=== PATIENT | male | born 1980 | race African-American/Black ===

== ENCOUNTER 2016-12-08 13:55 | Outpatient (CLI) | payer BC ==
--- NOTE | 2016-12-08 17:59 | MRI ---
MRI LUMBAR SPINE NONCONTRAST: DATE: 12/08/16 COMPARISON: None. HISTORY: 36-year-old male with left lumbar radiculopathy for 3 weeks. FINDINGS: For the purposes of this report, it will be assumed that there are 5 lumbar-type vertebrae. The lyubov tebral body heights are maintained. There is diffusely T1 hypointense bone marrow signal. This is nonspecific, but the most common etiol ogy for this age group is red marrow conversion. Alignment is normal. No pathology of perivertebral spaces identified. Hypertrophy of the bilateral psoas muscles, presumably due to exercise. The findings by individual levels are as follows: T12-L1: Normal. L1-2: Normal. Conus medullaris terminates at this level. L2-3: Normal. L3-4: Minimal disc bulge. Disc signal and disc height maintained. Mild bilateral neural foraminal stenosis . No central stenosis. Mild degenerative facet changes bilaterally. L4-5: Mild to moderate disc space narrowing. Diffuse disc desiccation. Prominent diffuse disc bulge. Mild bilateral degenerative facet changes, slightly greater than at the L3-4 level. Bilateral moderate ne ural foraminal stenosis. Mild central stenosis. Small central disc protrusion with annular fissure s uperimposed on the disc bulge. Mild to moderate thecal sac stenosis due to this plus prominent poste rior epidural fat pad. L5-S1: Moderate disc space narrowing. Diffuse disc desiccation. Diffuse prominent disc bulge. There is a le ft paracentral/lateral focal disc extrusion with slight inferior migration of disc material, which i mpinges on the left S1 nerve root. The left S1 nerve root appears to be swollen. There is also a zelda tral and right paracentral component of disc herniation which abuts and mildly displaces the contral ateral right S1 nerve root. These cause a mild degree of central spinal canal stenosis. No high grad e degenerative facet changes. Mild bilateral neural foraminal stenosis. IMPRESSION: 1. Prominent, moderate sized left paracentral-lateral disc extrusion at L5-S1, frankly impinging on the left S1 nerve root. 2. Smaller central and right paracentral disc herniation at L5-S1 mildly impinging on the contralat eral right S1 nerve root. 3. Degenerative disc disease at L4-5 and L5-S1. EVELYN Rodriguez POS: KAREN
== END 2016-12-08 13:56 | disposition home or self-care (01) ==
LOC: TBSIIMAG 13:55
PROVIDERS: ATTEND Neurological Surgery
DX: M51.17 Intervertebral disc disorders with radiculopathy, lumbosacral region (principal)
CPT/HCPCS: 72148

== ENCOUNTER 2016-12-19 08:28 | Day surgery (SDC) | payer BC ==
[2016-12-16 11:08] VITALS: BMI 33.2
[2016-12-19 10:05] LABS: Hematocrit 49.8 % (42.0-52.0); Mean Platelet Volume 6.2 fL (7.4-10.4); Red Blood Cell (RBC) Count 5.39 mill/uL (4.70-6.10); White Blood Cell (WBC) Count 8.1 thou/uL (4.8-10.8)
[2016-12-19 10:22] LABS: Anion Gap 11 mmol/L (10-20); BUN (Urea Nitrogen) 12 mg/dL (8.9-20.6); Calc. Creatinine Clearance 167 mL/min (70-130); Calcium 9.9 mg/dL (7.8-10.44); Carbon Dioxide 25 mmol/L (22-29); Chloride 109 mmol/L (98-107); Estimated GFR-MDRD Greater than 90
[2016-12-19] MEDS ORDERED: CEFAZOLIN/Water 2 GM/20 ML SYRINGE ONE (10:22)
[2016-12-19] MEDS ORDERED: Midazolam HCl 2 mg/2 ml Vial ONE ×2 (10:22→11:50)
[2016-12-19] MEDS ORDERED: Fentanyl 100 MCG/2 ML VIAL ONE ×4 (11:50→14:21)
[2016-12-19] MEDS ORDERED: Lidocaine 2% MPF 10 ML AMP (For Epidural Use) ONE (12:21)
[2016-12-19] MEDS ORDERED: Propofol 200 MG/20 ML VIAL ONE (12:21)
[2016-12-19] MEDS ORDERED: PHENYLEPHRINE-NS 100 MCG/ML 10 ML SYRINGE ONE (12:21)
[2016-12-19] MEDS ORDERED: Glycopyrrolate 0.2 MG/ML 5 ML SYRINGE ONE (12:21)
[2016-12-19] MEDS ORDERED: Dexamethasone 20 MG/5 ML VIAL ONE (12:21)
[2016-12-19] MEDS ORDERED: Ondansetron HCl/PF 4 MG/2 ML Vial ONE (12:21)
--- NOTE | 2016-12-19 13:21 | OP ---
DATE OF OPERATION: 12/19/2016 SURGEON: Lincoln Finch M.D. TRACK SERVICE WORKER: Vandana Elias PA-C PROCEDURE: Left L5-S1 microdiskectomy. PROCEDURE IN DETAIL: The patient was brought into the operating room, intubated. He was rolled in the prone position on gel-filled chest rolls. Incision made exposing L5 and S1 on the left and our level was confirmed by x-ray. We performed left L5-S1 hemilaminectomy, removed the yellow ligament and identified beneath the left S1 nerve root, a large herniated disk removed in multiple pieces. A complete decompression of left S1 was achieved. The wound was then extensively irrigated, katrin te hemostasis was secured. Vancomycin powder was applied and the wound was closed in anatomic layer s.
[2016-12-19] MEDS ORDERED: Ketorolac Tromethamine 30 MG/ML VIAL ONE (14:20)
[2016-12-19] MEDS ORDERED: HYDROcodone/Acetaminophen 10/325 mg Tablet ONE (15:39)
== END 2016-12-19 16:20 | disposition home or self-care (01) ==
LOC: SDC 08:28
PROVIDERS: ATTEND Neurological Surgery
PROC: 01NB0ZZ Release Lumbar Nerve, Open Approach (ICD-10-PCS; principal; 2016-12-19)
PROC: 0SB20ZZ Excision of Lumbar Vertebral Disc, Open Approach (ICD-10-PCS; principal; 2016-12-19)
DX: M51.17 Intervertebral disc disorders with radiculopathy, lumbosacral region (principal); Z79.899 Other long term (current) drug therapy; Z90.49 Acquired absence of other specified parts of digestive tract; Z98.890 Other specified postprocedural states
CPT/HCPCS: 36415; 76001; 80048; 85027; 93005; 93010; 96374; J1100; J1885; J2001; J2250; J2405; J2704; J3010; J3370